=== PATIENT | female | born 1995 | race Caucasian/White ===

== ENCOUNTER 2017-03-14 19:43 | Emergency (ER) | payer OTHER, MEDICAID ==
[~2017-03-14] VITALS: Ht 167.6 cm; Wt 65.8 kg
[~2017-03-14 19:43] MED LIST: CODE-54 PO; FAMO-119 PO; FRS325T PO; IBP600T1 PO; METR500T PO; PRD20T PO; PREN1TAB71 PO
--- OUTSIDE RECORDS SUMMARY | 2017-03-14 19:49 | XMS REPORT | Continuity of Care Document ---
Author Author [facility] Address Unknown Phone Unavailable Allergies Active Description Code Type Severity Reaction Onset Reported/Identified Relationship to Patient Clinical Status Yes Penicillins [id number] Drug Allergy Unknown N/A 07/26/2013 Yes latex [id number] Drug Allergy Unknown N/A 03/22/2014 Medications Problems Date Dx Coded Attending Type Code Diagnosis Diagnosed By 12/24/2011 ANAYA ROBERTS, LANCE Manrique 296.90 MOOD DISORDER 01/15/2012 ANAYA ROBERTS, LANCE Manrique 311 DEPRESSIVE DISORDER NOS 02/11/2012 ANAYA ROBERTS, LANCE Manrique 599.0 URINARY TRACT INFECTION 07/26/2013 NATE ANAND, TOM K Ot 623.8 07/26/2013 NATE , TOM K Ot 626.9 07/26/2013 NATE , TOM K Ot V72.41 03/22/2014 ROMA GARY, NIMESH D Ot 616.10 03/22/2014 ROMA GARY, NIMESH D Ot 623.8 03/22/2014 ROMA GARY, NIMESH D Ot 640.03 03/22/2014 ROMA GARY, NIMESH D Ot 646.63 06/23/2014 Ot 599.0 06/23/2014 Ot 646.63 08/23/2014 ORLY DO, AVIS C Ot 655.73 09/30/2014 ORLY DO, AVIS C Ot 648.91 09/30/2014 ORLY DO, AVIS C Ot V02.51 09/30/2014 ORLY DO, AVIS C Ot V06.1 09/30/2014 ORLY ANAND AVIS C Ot V27.0 12/16/2014 SERENITY CM Ot 111.0 12/16/2014 SERENITY CM Ot 647.83 12/16/2014 SERENITY CM Ot 648.93 12/16/2014 SERENITY CM Ot 913.4 12/16/2014 SERENITY CM Ot 916.4 12/16/2014 SERENITY CM Ot E000.8 12/16/2014 SERENITY CM Ot E906.4 05/24/2015 DONYA GARY, JHOANA Barron Ot S81.012A 05/24/2015 DONYA GARY, JHOANA S Ot S93.401A 05/24/2015 DONYA GARY, JHOANA S Ot W19.XXXA 05/24/2015 DONYA GARY, JHOANA S Ot Y99.8 Procedures Code [place] [address] PSYCHO TESTING 1 HR W COMP 03/08/2012 Results Encounters ACCT No. Visit Date/Time Discharge Status Pt. Type Provider Facility Loc./Unit Complaint [id number] 02/11/2012 18:08:00 02/11/2012 23: 59:59 CLS Outpatient ANAYA ROBERTS, LANCE Manrique [id number] 05/24/2015 10:25:00 2015 12:00:00 DIS Emergency JHOANA NAQVI MD Via [facility] ER [id number] 12/16/2014 20:49:00 2014 22:25:00 DIS Emergency SERENITY CM [facility] ER [id number] 09/28/2014 14:30:00 2014 17:05:00 DIS Inpatient AVIS VILLALBA DO [facility] LDRP [id number] 08/23/2014 06:19:00 2014 07:45:00 DIS Outpatient AVIS VLILALBA DO [facility] WSo [id number] 03/22/2014 04:40:00 2013 06:33:00 DIS Emergency NIMESH BRANDON MD [facility] ER [id number] 07/26/2013 10:10:00 2013 12:44:00 DIS Emergency TOM SULLIVAN DO [facility] ER [id number] 06/23/2014 10:00:00 Document Registration
[2017-03-14 20:06] LABS: BILIRUBIN,URINE NEGATIVE (NEGATIVE); KETONES,URINE NEGATIVE (NEGATIVE); LEUKOCYTE ESTERASE ,URINE 2+ (NEGATIVE); NITRITE,URINE NEGATIVE (NEGATIVE); PH,URINE 7 (5-9); PROTEIN,URINE 2+ (NEGATIVE); UROBILINOGEN,URINE 1 MG/DL (NORMAL)
[2017-03-14 20:12] LABS: SQUAMOUS EPITHELIAL CELL,UR 25-50 /HPF
--- NOTE | 2017-03-14 20:41 | ED GU-Female ---
General Chief Complaint: -Female Stated Complaint: DISCOLORED VAGINAL DISCHARGE Nursing Triage Note: C/O green sicharge times 1 week. States she has had vaginitis before. Denies fever, vomiting, or uti sx Nursing Sepsis Screen: No Definite Risk Source: patient Exam Limitations: no limitations History of Present Illness Time seen by provider: 20:00 Initial Comments 21-year-old female patient presents to the emergency department with complaints of green vaginal discharge for approximately one week. Patient was seen this week by her primary care provider and diagnosed with strep throat and put on amoxicillin. Sore throat is improved with the amoxicillin. Patient reports she now is dry and irritated externally on the general area. Patient reports her boyfriend began having intercourse a couple of months ago and denies using condoms. Patient does have a Mirena. Reportedly here visiting family for the holidays. Timing/Duration: week, getting worse Severity/Quality: burning Location: vaginal, other (genitals) Activities at Onset: none Prior Genitourinary Problems: none Sexual [place] History: less than 2 months ago, single partner Modifying Factors: Worsens With Palpation, Worsens With Urinating, Worsens With Other (worse with intercourse) Allergies and Home Medications Allergies Coded Allergies: latex (Unverified Allergy, Unknown, 03/22/14) Home Medications Fluconazole 150 Mg Tablet, 150 MG PO UD, #2 Ref 1 1 tap po q3d [id number]. repeat if needed. Prescribed by: SERENITY MARSHALL on 03/14/172119 Metronidazole 250 Mg Tablet, 250 MG PO BID, #14 Ref 0 Prescribed by: SERENITY MARSHALL on 03/14/172119 Constitutional: No chills, No fever, No malaise EENTM: see HPI Respiratory: no symptoms reported Cardiovascular: no symptoms reported Genitourinary: see HPI, burning, discharge, denies dysuria, denies frequency, denies flank pain, denies hematuria, pain : No Musculoskeletal: no symptoms reported Skin: see HPI Psychiatric/Neurological: No Symptoms Reported All Other Systemes Reviewed Negative Unless Noted: Yes (Negative excepted noted.) Past Ugdzqvt-Myriua-Dpvjce Hx Patient Social History Alcohol Use: Denies Use Recreational Drug Use: No Smoking Status: Never a Smoker 2nd Hand Smoke Exposure: No Recent Foreign Travel: No Contact w/Someone Who Travel: No Recent Infectious Disease Expo: No Recent Hopitalizations: No Physical Abuse: No Sexual Abuse: No Mistreated: No Fear: No Immunizations Up To Date Tetanus Booster (TDap): More than 5yrs PED Vaccines UTD: Yes Date of Influenza Vaccine: Jan 18, 2017 Seasonal Allergies Seasonal Allergies: No Surgeries History of Surgeries: No Respiratory History of Respiratory Disorde: No Cardiovascular History of Cardiac Disorders: No Neurological History of Neurological Disord: No Reproductive System : No Hx : 1 Hx Para: 1 Hx Total # of Abortions (Spona: 0 Hx Reproductive Disorders: No Sexually Transmitted Disease: No HIV/AIDS: No Female Reproductive Disorders: Denies CREDIT ADMINISTRATOR History: IUD Genitourinary History of Genitourinary Disor: No Gastrointestinal History of Gastrointestinal Di: No Musculoskeletal History of Musculoskeletal Dis: No Endocrine History of Endocrine Disorders: No Cancer History of Cancer: No Psychosocial History of Psychiatric Problem: No Suicide Risk Score: 0 Integumentary History of Skin or Integumenta: Yes (due to pigment spots noted on back, chest and upper abd) Skin/Integumentary Disorders: Recent Skin Changes Blood Transfusions History of Blood Disorders: No Adverse Reaction to a Blood Tr: No Reviewed Nursing Assessment Reviewed/Agree w Nursing PMH: Yes Family Medical History Significant Family History: No Pertinent Family Hx Family Medial History: Alcoholism 19 FATHER 19 MOTHER G8 BROTHER Arthritis 19 FATHER Asthma G8 SISTER Cardiovascular disease 19 FATHER Cataracts G8 SISTER Completed stroke 19 FATHER Congenital heart disease 19 FATHER Drug abuse G8 BROTHER Headache disorder G8 SISTER Seizure disorder 19 FATHER No Family History of: AIDS Abdominal aortic aneurysm Story's disease Alzheimer's disease Aphasia Cancer of mouth Colon cancer Congenital disease Coronary thrombosis Cystic fibrosis Deafness or hearing loss Dementia Diabetes mellitus Dysphasia Fibrocystic disease of breast Gastroenteritis Glaucoma Hypercholesterolemia Hypertension Infertility Kidney disease Myocardial infarction Neoplasm Not obtainable due to adoption Osteoporosis Parkinson's disease Prostate cancer Psychosocial problem Respiratory disorder Severe allergy Thyroid disease Tuberculosis Visual disorder Physical Exam Vital Signs Vital Sign - Last 12Hours 03/14/17 19:48 Temp 98.0 Pulse 87 Resp 18 B/P (MAP) 139/73 Pulse Ox 100 Capillary Refill : Less Than 3 Seconds General Appearance: WD/WN, no apparent distress Cardiovascular: normal peripheral pulses, regular rate, rhythm, no edema, no murmur Respiratory: lungs clear, normal breath sounds, no respiratory distress, no accessory muscle use Gastrointestinal: normal bowel sounds, non tender, soft, no organomegaly, No distended Pelvic: normal adnexa, no cerv. motion tender, no masses, discharge (off white vaginal dsch noted. ), No vaginal bleeding, other (cervix friable. scaly, erythematous rash of the external genitalia noted. no ulcerations or vesicles noted. ) Back: normal inspection Extremities: no pedal edema, normal capillary refill Neurologic/Psychiatric: alert, normal mood/affect, oriented x 3 Skin: normal color, warm/dry, rash (scaly, erythematous rash of the external genitalia noted. no ulcerations or vesicles noted. ) Progress/Results/Core Measures Suspected Sepsis Recent Fever Within 48 Hours: No Infection Criteria Present: None New/Unexplained Altered Menta: No Sepsis Screen: No Definite Risk Sepsis Diagnosis: SIRS Temperature:98.0 Pulse: 87 Respiratory Rate: 18 Blood Pressure 139 /73 Mean: 95 Results/Orders Lab Results Laboratory Tests Test 03/14/17 19:48 03/14/17 20:15 Range/Units Urine Color YELLOW Urine Clarity SLIGHTLY CLOUDY Urine pH 7 5-9 Urine Specific [place] 1.015 L 1.016-1.022 Urine Protein 2+ H NEGATIVE Urine Glucose (UA) NEGATIVE NEGATIVE Urine Ketones NEGATIVE NEGATIVE Urine Nitrite NEGATIVE NEGATIVE Urine Bilirubin NEGATIVE NEGATIVE Urine Urobilinogen 1 NORMAL MG/DL Urine Leukocyte Esterase 2+ H NEGATIVE Urine RBC (Auto) NEGATIVE NEGATIVE Urine RBC NONE /HPF Urine WBC 2-5 /HPF Urine Squamous Epithelial Cells 25-50 H /HPF Urine Crystals PRESENT H /LPF Urine Amorphous Sediment FEW JIMMY URATES H /LPF Urine Bacteria NONE /HPF Urine Casts NONE /LPF Urine Mucus NEGATIVE /LPF Urine Culture Indicated NO My Orders Orders - SERENITY MARSHALL Ua Culture If Indicated (03/14/17 19:57) Urine Bedside (03/14/17 19:57) Wet Prep (03/14/17 19:57) Neisseria Gonorrhea Dna (03/14/17 19:57) Chlamydia Dna (03/14/17 19:57) Genital Culture (03/14/17 19:57) Fluconazole Tablet (Ed Only) (Diflucan T (03/14/17 21:30) Metronidazole Tablet (Flagyl Tablet) (03/14/17 21:30) Metronidazole Tablet (Flagyl Tablet) (03/14/17 21:19) Medications Given in ED Current Medications Medications Dose Ordered Sig/Brenda Route Start Time Stop Time Status Last Admin Dose Admin Fluconazole 300 mg ONCE ONCE PO 03/14/17 21:30 03/14/17 21:31 DC 03/14/17 21:35 300 MG Metronidazole 500 mg STK-MED ONCE .ROUTE 03/14/17 21:19 03/14/17 21:28 DC 03/14/17 21:35 500 MG Vital Signs/I&O Vital Sign - Last 12Hours 03/14/17 19:48 Temp 98.0 Pulse 87 Resp 18 B/P (MAP) 139/73 Pulse Ox 100 Capillary Refill : Less Than 3 Seconds Blood Pressure Mean: 95 Point of Care Testing Urine -Bedside: Negative Departure Communication (Admissions) Progress Notes Patient seen and evaluated. Patient does report using the same razor for quite some time. She uses a same razor to shave her legs that she uses to shave the genital area. Laboratory findings discussed with the patient. Plan for discharge to home. Patient given 1 dose of metronidazole and Diflucan in the emergency department prior to discharge. Patient to follow-up with her demurrage man for recheck. Impression Impression: Primary Impression: Bacterial vaginitis Additional Impression: Candidal vulvitis Disposition: HOME, SELF-CARE Condition: Improved Departure-Patient Inst. Decision time for Depature: 21:19 Referrals: KIAN MCGRATH,LOCAL PHYSICIAN (PCP) Primary Care Physician SOFI CRAIG ANGELA C DO Patient Instructions: Bacterial Vaginosis (DC), Vaginal Yeast Infection (DC) Add. Discharge Instructions: All discharge instructions reviewed with patient and/or family. Voiced understanding. Medications as instructed. Tylenol Extra Strength [id number] as directed for pain. Ibuprofen 800 mg by mouth every 8 hours as needed for pain. Monistat cream over the counter for symptom relief. Avoid intercourse until symptoms are resolved. Avoid shaving until symptoms resolve. When you to resume shaving, make sure your using a new razor. Disinfect your bathtub and showers. Follow-up with your demurrage man for recheck as outpatient and need for Pap smear. Return to the emergency department for worsened symptoms or any other concerns. Scripts Fluconazole (Diflucan) 150 Mg Tablet 150 MG PO UD, #2 TAB 1 Refill 1 tap po q3d [id number]. repeat if needed. Prov: SERENITY MARSHALL 03/14/17 Metronidazole (Metronidazole) 250 Mg Tablet 250 MG PO BID, #14 TAB 0 Refills Prov: SERENITY MARSHALL 03/14/17 SERENITY MARSHALL Mar 14, 2017 20:41
[2017-03-14] MEDS ORDERED: metroNIDAZOLE 500 MG (FLAGYL) TAB ONE (21:19)
[2017-03-14] MEDS ORDERED: FLUC150T PO (21:20)
[2017-03-14] MEDS ORDERED: METR250T32 PO (21:20)
[2017-03-14] MEDS ORDERED: metroNIDAZOLE 250 MG (FLAGYL) TAB PO ONE (21:30)
[2017-03-14] MEDS ORDERED: FLUCONAZOLE 150 MG TABLET (ED ONLY) PO ONE (21:30)
[2017-03-14 21:34] VITALS: BP 123/61
== END 2017-03-14 21:35 | disposition home or self-care (01) ==
LOC: EDUNIT# 19:43 → ER 19:45
DX: N76.0 Acute vaginitis (principal); B96.89 Other specified bacterial agents as the cause of diseases classified elsewhere; B37.3 Candidiasis of vulva and vagina; Z97.5 Presence of (intrauterine) contraceptive device; Z82.49 Family history of ischemic heart disease and other diseases of the circulatory system
CPT/HCPCS: 36415; 81000; 84703; 87070; 87210; 87491; 87591; 99284